=== PATIENT | female | born 1965 | race Caucasian/White ===

== ENCOUNTER 2016-09-12 14:23 | Emergency (ER) | payer OTHER ==
[2016-09-12 14:59] LABS: URINE SOURCE CLEAN CATCH
[2016-09-12 15:05] LABS: COLOR BROWN; SP GRAVITY URINE 1.019; TURBIDITY URINE HAZY (CLEAR)
[2016-09-12 15:06] LABS: URINE MICRO REVIEW NEEDED? YES
[2016-09-12 15:14] LABS: UR EPITHELIAL CELLS <10 /HPF (<10); URINE BACTERIA 3+ /HPF; URINE RBC TNTC /HPF (<10); URINE WBC TNTC /HPF (<10)
[2016-09-12 15:28] LABS: BILIRUBIN URINE MODERATE (NEGATIVE); PROTEIN URINE 300 mg/dL (NEGATIVE); URINE CULTURE NEEDED? YES
[2016-09-12 15:29] LABS: BLOOD URINE LARGE (NEGATIVE); GLUCOSE URINE 200 mg/dL (NEGATIVE)
[2016-09-12 15:30] LABS: LEUKOCYTES URINE MODERATE (NEGATIVE); NITRITE URINE POSITIVE (NEGATIVE); UROBILINOGEN URINE 8 mg/dL (NORMAL)
--- NOTE | 2016-09-12 17:01 | PROVIDER DOCUMENTATION ---
HPI-Female /OB/Breast - General Chief Complaint: UTI Symptoms Stated Complaint: UTI SX Time Seen by Provider: 09/12/16 16:56 Source: reports: patient Allergies/Adverse Reactions: Patient Allergies Allergy/AdvReac Type Severity Reaction Status Date / Time adhesive Allergy HIVES Verified 09/12/16 17:11 Penicillins Allergy ANAPHYLAXIS Verified 09/12/16 17:11 venom-honey bee Allergy HIVES Verified 09/12/16 17:11 [bee venom (honey bee)] Home Medications: Home Medication List Medication Instructions Recorded Confirmed Last Taken Type Alprazolam [Xanax] 0.25 mg PO BID PRN PRN 06/13/15 09/12/16 09/12/16 06:00 History Fitzpatrick Carbonate 300 mg PO QHS 06/13/15 09/12/16 09/12/16 06:00 History Oxcarbazepine [Trileptal] 600 mg PO DIRECTED 06/13/15 09/12/16 09/12/16 06: 00 History Prednisone 10 mg PO DIRECTED #9 tablet 06/13/15 09/12/16 09/11/16 10:00 Rx Tiotropium Wilcox [Spiriva 2 spray INH DAILY 06/13/15 09/12/16 09/11/16 10:00 History Respimat] Phenazopyridine HCl [Pyridium] 100 mg PO TID #6 tablet 09/12/16 Unknown Rx Sulfamethoxazole/Trimethoprim 1 each PO BID #10 tablet 09/12/16 Unknown Rx [Bactrim Ds Tablet] - History of Present Illness-Female /OB Nature of Presenting Problem: 51 y/o WF c/o dysuria, frequency, urgency x 3 days. Pt states that she has been taking OTC AZO, but not helping. States dull aches in bilat low back, but denies any abd. pain, fever/chills, N/V/C. States some diarrhea x 1 over last 2 days. Review of Systems - Adult - REVIEW OF SYSTEMS - ADULT Constitutional: reports: no symptoms reported. denies: chills, fever Eyes: reports: no symptoms reported. denies: blurred vision, double vision Ears, Nose, Mouth & Throat: reports: no symptoms reported. denies: ear pain, nose pain Cardiovascular: reports: no symptoms reported. denies: chest pain, palpitations Respiratory: reports: no symptoms reported. denies: dyspnea on exertion, shortness of breath Gastrointestinal: reports: see HPI. denies: abdominal pain, nausea, vomiting Genitourinary: reports: see HPI, dysuria, frequency, urgency. denies: flank pain, frequent UTI's Musculoskeletal: reports: no symptoms reported. denies: joint pain, joint swelling Integumentary: reports: no symptoms reported. denies: nail changes, rash Neurological: reports: no symptoms reported. denies: numbness, paresthesia Psychiatric: reports: no symptoms reported Endocrine: reports: no symptoms reported. denies: cold intolerance, heat intolerance Hematologic/Lymphatic: reports: no symptoms reported. denies: easy bruising, prolonged bleeding Allergic/Immunologic: reports: no symptoms reported All Other Systems: Reviewed and Negative Past History - Adult - PAST MEDICAL HISTORY-ADULT Review of Records: reports: Nursing Assessment Review, Medications Reviewed Major Childhood Illnesses: reports: denies history Musculoskeletal: reports: neck/back injury Psychiatric: reports: bipolar - PRIOR SURGERIES/PROCEDURES Surgical/Procedure History: reports: hysterectomy (partial), orthopedic ( extremity) (R rotator cuff, bilat carpal tunnel), other (cyst removal) - SOCIAL HISTORY Smoking: cigarettes, less than 1 pack/day Provider spent 3-5 mins advising pt. on dangers of tobacco.: Discussed manners to quit use, and f/u contacts for add'l counseling. Alcohol Use Frequency: once a month Number of drinks per typical drinking period:: 2 drinks Living Situation: family Physical Exam-General - PHYSICAL EXAM-ADULT Initial Vital Signs Reviewed: Yes - CONSTITUTIONAL General Appearance: alert, mild distress - EYES Eyes: pink conjunctivae - HEAD, EARS, NOSE, MOUTH & THROAT HENMT: normocephalic/atraumatic, moist mucous membranes - NECK Neck: normal inspection - RESPIRATORY Respiratory: lungs clear, normal breath sounds. negative: crackles, rales, rhonchi, stridor, wheezing - CARDIOVASCULAR Cardiovascular: regular rate, rhythm. negative: bradycardia, tachycardia - GASTROINTESTINAL (ABDOMEN) Abdominal Exam: normal bowel sounds, non tender, soft. negative: distended, guarding, rigid, rebound - MUSCULOSKELETAL Back Exam: no CVA tenderness Extremity: normal gait - SKIN Integumentary: normal color, normal turgor, warm/dry - NEUROLOGIC Neurologic: negative: aphasia - PSYCHIATRIC Psych/Mental Status: normal mood/affect, normal thought content, normal thought process, oriented x 3 Progress - PLAN OF CARE/RESULTS Progress/Plan/Lab Results: Laboratory Tests 09/12/16 14:41 Urine Source CLEAN CATCH Urine Color BROWN Urine Turbidity HAZY Urine pH 5.0 Ur Specific [place] 1.019 Urine Protein 300 A Ur Glucose (Stick) 200 A Ur Ketones (Stick) TRACE A Urine Blood LARGE A Urine Nitrite POSITIVE A Urine Bilirubin MODERATE A Urobilinogen Dipstick 8 A Urine Leukocytes MODERATE A Urine WBC (Auto) TNTC A Urine RBC (Auto) TNTC A U Epithel Cells (Auto) <10 Urine Bacteria (Auto) 3+ Urine Crystals Not Reportable Small Round Cells Not Reportable Urine Casts Not Reportable Urine Yeast-like Cells NONE SEEN Orders Category Date Time Status URINALYSIS W/POSS RFLX CULT [URINALYSIS] Stat Lab 09/12/16 14:41 Completed URINE CULTURE [RM] Routine Lab 09/12/16 15:30 Received URINE MANUAL MICROSCOPIC [URINALYSIS] Stat Lab 09/12/16 14:41 Completed Hydrocodone/APAP 7.5 mg/325 mg [[place]-7.5] Med 09/12/16 17:06 Discontinued 1 each PO NOW ONE Ondansetron Odt [Zofran Odt] Med 09/12/16 17:06 Discontinued 4 mg PO NOW ONE Sulfamethoxazole/Tmp D.s. [Septra Ds] Med 09/12/16 17:06 Discontinued 2 each PO NOW ONE Vital Signs Temp Pulse Resp BP Pulse Ox 09/12/16 17:28 70 14 131/64 98 09/12/16 14:36 98.5 F 83 18 131/67 100 adhesive Allergy (Verified 09/12/16 17:11) HIVES Penicillins Allergy (Verified 09/12/16 17:11) ANAPHYLAXIS venom-honey bee [bee venom (honey bee)] Allergy (Verified 09/12/16 17:11) HIVES Alprazolam [Xanax] 0.25 mg PO BID PRN PRN 06/13/15 Fitzpatrick Carbonate 300 mg PO QHS 06/13/15 Oxcarbazepine [Trileptal] 600 mg PO DIRECTED 06/13/15 Prednisone 10 mg PO DIRECTED #9 tablet 06/13/15 Tiotropium [place] [Spiriva Respimat] 2 spray INH DAILY 06/13/15 Phenazopyridine HCl [Pyridium] 100 mg PO TID #6 tablet 09/12/16 Sulfamethoxazole/Trimethoprim [Bactrim Ds Tablet] 1 each PO BID #10 tablet 09/12 Laboratory 09/12/16 14:41 Urine Source CLEAN CATCH Urine Color BROWN Urine Turbidity HAZY Urine pH 5.0 Ur Specific [place] 1.019 Urine Protein 300 A Ur Glucose (Stick) 200 A Ur Ketones (Stick) TRACE A Urine Blood LARGE A Urine Nitrite POSITIVE A Urine Bilirubin MODERATE A Urobilinogen Dipstick 8 A Urine Leukocytes MODERATE A Urine WBC (Auto) TNTC A Urine RBC (Auto) TNTC A U Epithel Cells (Auto) <10 Urine Bacteria (Auto) 3+ Urine Crystals Not Reportable Small Round Cells Not Reportable Urine Casts Not Reportable Urine Yeast-like Cells NONE SEEN Discussed results and f/u with pt, including medication use. Departure - Departure Time of Disposition Order: 17:07 DIAGNOSIS: UTI (urinary tract infection) Qualifiers: Urinary tract infection type: acute cystitis Hematuria presence: with hematuria Qualified Code(s): N30.01 - Acute cystitis with hematuria Disposition: HOME 01 Certified Medical Emergency: Emergent Condition: Stable Additional Instructions: Take medications as directed. Drink plenty of fluids. Follow up with PCP in 3- 5 days for recheck. ED Follow Up Instructions: You have been treated by a care provider in the Emergency Department. These instructions are being provided to you so you can have an understanding of how to care for yourself upon discharge. Upon discharge from the Emergency Department, you are responsible for making arrangements for follow-up care by a physician of your choice. Take all prescribed medications as directed. Return to the Emergency Department immediately for any new or worsening symptoms. You may call the Physician Referral phone number at [phone] to obtain a list of Physicians who are taking new patients. Prescriptions: Sulfamethoxazole/Trimethoprim [Bactrim Ds Tablet] 1 each PO BID #10 tablet Phenazopyridine HCl [Pyridium] 100 mg PO TID #6 tablet Referrals: None,PCP [Primary Care Provider] - Forms: Return to School/Parent Work Instructions: Urinary Tract Infection, [id number] Attestation - Physician/ EVETTE Attestation Patient care was provided by Advanced Practice Provider:: Yes Advanced Practice Provider:: Geovanna Read Advanced Practice Provider documentation review:: The Mid-level provider documentation, treatment plan and medical decision making was reviewed by the physician who agrees with all treatment and medical decision making by the MLP.
[2016-09-12] MEDS ORDERED: ZOFRAN ODT PO ONE (17:06)
[2016-09-12] MEDS ORDERED: SEPTRA DS PO ONE (17:06)
[2016-09-12] MEDS ORDERED: NORCO-7.5 PO ONE (17:06)
[2016-09-12 17:29] VITALS: BP 131/64
== END 2016-09-12 17:33 | disposition home or self-care (01) ==
LOC: ED 14:23
DX: N30.01 Acute cystitis with hematuria (principal); R30.0 Dysuria; R35.0 Frequency of micturition; R39.15 Urgency of urination; M54.5 Low back pain; R19.7 Diarrhea, unspecified; F31.9 Bipolar disorder, unspecified; F17.210 Nicotine dependence, cigarettes, uncomplicated; Z79.899 Other long term (current) drug therapy; Z71.6 Tobacco abuse counseling
CPT/HCPCS: 81001; 87077; 87088; 87186